=== PATIENT | female | born 1980 | race Two or more races ===

== ENCOUNTER 2017-08-30 01:19 | Emergency (ER) | payer SELFPAY ==
[~2017-08-30] VITALS: Ht 160 cm; Wt 81.6 kg
--- NOTE | 2017-08-30 02:15 | NUR ---
PT FELL WHILE SKATEBOARDING. PT IS C/O RUE, RT SHOULDER PAIN. DR. RUIZ IS AT THE BEDSIDE.
--- NOTE | 2017-08-30 02:17 | NUR ---
[facility] IS IN THE CHART.
--- NOTE | 2017-08-30 02:18 | NUR ---
CALLED RADIOLOGY RE: [facility] WAIVER AND XRAYS ORDERED.
--- NOTE | 2017-08-30 02:29 | NUR ---
XRAY IN PROGRESS AT THE BEDSIDE.
--- NOTE | 2017-08-30 03:23 | NUR ---
PT REC'D A SHOULDER IMMOBILIZER. Patient discharged to home in stable condition. Written and verbal after care instructions given. Patient verbalizes understanding of instruction AND RX. PT AMBULATED OUT WITH A STEADY GAIT. VSS.
[2017-08-30 03:31] VITALS: BP 121/70
== END 2017-08-30 03:32 | disposition home or self-care (01) ==
LOC: ER 01:21
DX: S40.011A Contusion of right shoulder, initial encounter (principal); V00.131A Fall from skateboard, initial encounter; Y93.51 Activity, roller skating (inline) and skateboarding; Y92.89 Other specified places as the place of occurrence of the external cause; Y99.8 Other external cause status
CPT/HCPCS: 29105; 73030; 73060; 99284; A4606; Z7610